=== PATIENT | male | born 1955 | race Caucasian/White ===

== ENCOUNTER → 2017-05-20 14:20 | Outpatient (CLI) | payer OTHER, BC, SELFPAY ==
--- NOTE | 2017-05-20 14:23 | MR_ITS ---
MR shoulder RT wo con HISTORY: Right shoulder pain with limited range of motion ITS.REASON: RIGHT SHOULDER PAIN nor injury April 21. Pain with difficulty extending arm from body ORDERING PHYSICIAN: Lupe Doe MD PATIENT AGE: 61 years COMPARISON: None TECHNIQUE:. Multiplanar multiecho sequences, without contrast. On 1.5 T MR FINDINGS: Abnormal biceps tendon. Longitudinal split tear the biceps tendon which begins on initial inferior images it continues upward through through level of bicipital groove.. Prominent enlarged biceps tendon results Fluid surrounding the biceps tendon sheath. The tendon does not appear to be fully transected but there is significant longitudinal split tear evident. . There is edema and increased signal throughout the anterior interval region, overlying the biceps tendon. The subscapularis tendon for the most part is intact although there with abnormal signal seen at superior aspect and near its insertion. Suspect mild partial tear of the of the superior margin subscapularis tendon as well... The biceps tendon follows a far anterior course as it passes above the bicipital groove. Although the biceps tendon not frankly anteriorly dislocated it is somewhat anterior in its course. Question leg could reflect partial disruption of restricting patricia of the subscapularis tendon.. Anterior inferior glenoid labrum appears diminished irregular signal & poorly defined, suspect for tear anterior labrum as well.. Posterior glenoid labrum intact. Osseous glenoid intact. Cartilage at the glenohumeral joint fairly well maintained. Moderate joint effusion with fluid extending to the subcoracoid recess anteriorly. Noted. Supraspinatus tendon:. Increased signal at its anterior margin of may reflect tendinopathy or possibly a partial tear.. No high-grade tear no full-thickness tear at this supraspinatus tendon. Narrowed subacromial space beneath the tip of acromion measuring 6 mm associated, reflecting mild/moderate subacromial stenosis Infraspinatus tendon appears intact. Small insertional erosions at the posterior humeral head just beneath the infraspinatus insertion noted reflecting minor degenerative changes. AC joint. Widening AC joint. Measures ~15 mm on axial MR image. Plain film correlation is suggested, ( right shoulder along with bilateral AC joint views with and without weights suggested). Slightly 1 cm widened AC joint appearance was also suggested on the previous August 2015 chest film.. Is there history of previous injury or surgery here? Any old studies available for comparison elsewhere.. There is some scant edema in at the right AC joint which I tend to favor reflects extension of joint fluid with small metallic MicroMark or artifact skin anterior to the right AC joint but I tend to favor this is old feature lIMPRESSION: Prominent longitudinal Split TEAR BICEPS TENDON most notable finding. Fluid surrounding biceps tendon. Abnormal Edema overlying this area throughout the anterior interval Subscapularis tendon with increased signal superiorly, suspect for partial tear its superior most margin. (This May contributing to the slight partial anterior position of biceps tendon) Anterior glenoid labral tear, or possibly degeneration. Anterior/ inferior labrum poorly defined Edema also extends into Abnormal Widening right AC joint... Suggests underlying AC joint separation. Age-indeterminate,, requires correlation(AC joint was generous width on a 2016 chest film but is slightly wider today MR.) Narrowed subacromial space. Supraspinatus Tendinopathy with possible partial tear along anterior margin supraspinatus tendon also noted
== END ==
PROVIDERS: Family Provider Family Medicine; PCP Family Medicine; Visit Provider Family Medicine
DX: M25.511 Pain in right shoulder (principal)
CPT/HCPCS: 73221

== ENCOUNTER → 2018-02-09 10:17 | Outpatient (CLI) | payer BC, SELFPAY ==
--- NOTE | 2018-02-09 10:23 | XR_ITS ---
EXAM: XR lumbar spine min 4V HISTORY: Low back pain ITS.REASON: SCIATICA ORDERING PHYSICIAN: Lupe Doe MD PATIENT AGE: 62 years COMPARISON: 08/25/2016 FINDINGS: Mild dextroscoliosis slightly worse than when compared to the previous exam measuring 19 degrees previously measuring 14 degrees. There is multilevel degenerative disc disease from T11 to L5. No acute fracture or dislocation is evident. There is mild chronic wedging at T12. No lytic or blastic change. IMPRESSION: Dextroscoliosis with degenerative disc disease at multiple levels. No acute fracture
== END ==
PROVIDERS: PCP Family Medicine; Visit Provider Family Medicine
DX: M54.30 Sciatica, unspecified side (principal)
CPT/HCPCS: 72110

== ENCOUNTER 2019-12-01 15:46 | Inpatient (IN) | payer BC, SELFPAY ==
[2019-12-01] VITALS (18 sets, daily range): BP systolic 113–171; BP diastolic 60–95; PULSE 70–90; RESP 16–18; TEMP 36.4–43; O2SAT 92–97; BMI 29.7; BMI 31.6
--- NOTE | 2019-12-01 15:42 | ECG_ITS ---
APPROVED REPORT Exam: Resting ECG HR:78 bpm ECG Measurements Heart Rate 78 AXES MS 236 P 37 QRSd 122 QRS 58 QT 386 T 41 QTc 440 <Conclusion> Sinus rhythm with 1st degree AV block Possible Left atrial enlargement RSR' or QR pattern in V1 suggests right ventricular conduction delay Borderline ECG Electronically signed by : Rashad Estrada, 12/06/2019 08:50:20
--- NOTE | 2019-12-01 15:51 | XR_ITS ---
PROCEDURE: XR CHEST 2V CLINICAL HISTORY: chest pain COMPARISON: CR CXR CHEST(2 VIEWS-NOT PORTABLE) from 08/20/2015 FINDINGS: The cardiomediastinal silhouette and pulmonary vascularity are within normal limits. The lungs are clear without infiltrates, suspicious nodules, or pleural effusions. Pneumoperitoneum is present. Degenerative changes are present in the thoracic spine. IMPRESSION: Pneumoperitoneum. The ER was aware of these findings and subsequently ordered a CT scan. Dictated by: Kristopher Sarkar MD 12/01/2019 16:52 Kristopher Sarkar MD in [place] 12/01/2019 16:52
[2019-12-01 16:04] LABS: Basophils % 0.3 % (0.1-2.0); Eosinophils # 0.3 K/mm3 (0.0-0.4); Eosinophils % 3.6 % (0.1-12.0); Hematocrit 44.7 % (42.0-52.0); Hemoglobin 16.4 g/dL (14.1-18.0); Lymphocytes # 1.1 K/mm3 (0.7-4.5); Lymphocytes % 12.4 % (10-50); Mean Corpuscular HGB Conc 36.6 g/dL (31.8-35.4); Mean Corpuscular Hemoglobin 31.1 pg (27.0-31.2); Mean Corpuscular Volume 84.8 fl (80-94); Mean Platelet Volume 7.2 fl (7.4-10.4); Monocytes # 0.6 K/mm3 (0.1-1.0); Monocytes % 7.2 % (1.7-9.3); Neutrophils # 6.7 K/mm3 (1.8-7.8); Neutrophils % 76.6 % (37.0-80.0); Platelet Count 301 K/mm3 (142-424); Red Blood Count 5.28 M/mm3 (4.60-6.20); Red Cell Distribution Width 13.8 % (11.5-17.5); White Blood Count 8.7 K/mm3 (4.8-10.8)
--- NOTE | 2019-12-01 16:08 | PC.NURSE ---
Pt to rad.
[2019-12-01 16:10] LABS: Anion Gap 8.8 mEq/L (5-15); Blood Urea Nitrogen 12 mg/dl (9-20); Calcium 9.4 mg/dl (8.4-10.2); Carbon Dioxide 29 mmol/L (22.0-30.0); Chloride 101 mmol/L (98-107); Creatinine Clearance Estimated 109 mL/min (50-200); Estimated Glomerular Filt Rate 75 ml/min (>60); GFR (African American) 91 ML/MIN (>60); Glucose 123 mg/dl (74-100); Potassium 3.8 mmoL/L (3.5-5.1); Sodium 135 mmol/L (136-145)
--- NOTE | 2019-12-01 16:12 | CT_ITS ---
PROCEDURE: CT ABDOMEN PELVIS W CON CLINICAL INDICATION: abd pain, diffuse Diffuse chest and abdominal and shoulder pain with abnormal chest x-ray. Pneumoperitoneum. COMPARISON: CR XR CHEST 2V from 12/01/2019 TECHNIQUE: IV Contrast: 75ML OPTIRAY 350 Oral Contrast None Axial images obtained with sagittal and coronal reformats. All CT scans at the facility use one or more dose reduction, viz: automated exposure control, ma/kV adjustment per patient size (including targeted exams where dose is matched to indication, i.e. head), or iterative reconstruction technique. FINDINGS: LOWER THORAX: There are atelectatic changes in the right lung base posteriorly with mild bronchiectasis and bronchial thickening with some mucoid impaction of posterior bronchi inferiorly. Coronary artery calcifications. There is a small hiatal hernia. ABDOMEN & PELVIS: Pneumoperitoneum is present. Small amount free air in the lesser sac. The stomach is somewhat distended with air-fluid level. There is a small hiatal hernia. The small bowel is mildly dilated throughout with scattered air-fluid levels. The distal most ileum is not distended. The appendix is prominent but there is no stranding of the periappendiceal fat. No abscess is evident. The appendix measures up to 11 mm in thickness with some minimal thickening of the wall proximally. There are few scattered small nodes in the mesenteries. There is no evidence of portal venous gas. The prior cholecystectomy. There is a 12 mm area of decreased attenuation within the right hepatic lobe anteriorly segment 6. The large bowel decompressed. There are few scattered colonic diverticula but no evidence of diverticulitis. The prostate is enlarged at 5.9 cm. No renal or ureteral calculi. The adrenal glands and pancreas and spleen have an unremarkable appearance. There are degenerative changes in the lumbar spine with scoliosis convex right. Sclerotic focus is present in the right femoral neck consistent with a bone island. There are mild osteoarthritic changes of the hips. A lucent lesion is present in the left ilium medially measuring 1 cm with sclerotic margin having a benign appearance. Possibly related to a cortical defect IMPRESSION: 1. Pneumoperitoneum consistent with ruptured viscus. The exact site of rupture is undetermined based on this exam. The stomach is somewhat distended with air-fluid levels. 2. Small bowel is also somewhat distended with air-fluid levels. A definite transition point is not identified however, the distal small bowel at the terminal ileum does not appear distended but there is smooth transition from the dilated portion to the nondilated portion of the terminal ileum. 3. The appendix is thickened measuring up to 11 mm with thickening of the wall. There is no air however around the thickened appendix. No abscess evident and no stranding of the periappendiceal fat. Cannot exclude the possibility of appendicitis. Clinical correlation required 4. Small hiatal hernia 5. 12 mm hypodense lesion of the liver nonspecific. Follow-up MRI or CT with hemangioma protocol may provide further evaluation on an outpatient basis. 6. Right lower lobe bronchiectasis with some mucoid impaction 7. Dr. Biggs was notified of the above findings by telephone 12/01/2019 at 4:30 p.m. Dictated by: Kristopher Sarkar MD 12/01/2019 16:48 Kristopher Sarkar MD in [place] 12/01/2019 16:48
--- NOTE | 2019-12-01 16:13 | PC.NURSE ---
pt tp ct
--- NOTE | 2019-12-01 16:17 | HMH.EDCP ---
ED Disposition Clinical Impression: Pneumoperitoneum Disposition: Admitted As Inpatient Condition on Discharge: Serious Referrals: Provider,Referral, [Referring] - - Critical Care Critical Care Time: No Attestation: On 12/01/19, the high probability of a clinically significant, sudden or life threatening deterioration of the following system(s) required my full and direct attention, intervention and personal management. The time I documented below is in addition to time spent performing reported procedures but includes the following listed in this critical care notation. Medical Decision Making - Medical Records Medical records reviewed: Yes: I reviewed the patient's medical records. - Jovon Inquiry Pt receiving controlled substance: No Vital Signs: 12/01/19 15:46 12/01/19 16:35 Temperature 98.0 F Temperature Source Oral Pulse Rate [Right Radial] 78 70 Respiratory Rate 18 Blood Pressure [Right Arm] 171/95 H 160/85 H Blood Pressure Mean [Right Arm] 120 110 Blood Pressure Source [Right Arm] Automatic Cuff Automatic Cuff Blood Pressure Position [Right Arm] Sitting Sitting 02 Sat by Pulse Oximetry 97 93 L Oxygen Delivery Method Room Air Room Air - Lab Data Lab Results 12/01/19 15:45: WBC 8.7, RBC 5.28, Hgb 16.4, Hct 44.7, MCV 84.8, MCH 31.1, MCHC 36.6 H, RDW 13.8, Plt Count 301, MPV 7.2 L, Neut % (Auto) 76.6, Lymph % (Auto) 12.4, [place] % (Auto) 7.2, Eos % (Auto) 3.6, Baso % (Auto) 0.3, Neut # (Auto) 6.7, Lymph # (Auto) 1.1, [place] # (Auto) 0.6, Eos # (Auto) 0.3, Baso # (Auto) 0.0 12/01/19 15:45: Sodium 135 L, Potassium 3.8, Chloride 101, Carbon Dioxide 29, Anion Gap 8.8, BUN 12, Creatinine 1.00, Estimated Creat Clear 109, Estimated GFR 75, Est GFR ( Amer) 91, Glucose 123 H, Calcium 9.4, Troponin I < 0.01 12/01/19 15:45: Total Bilirubin 0.7, Direct Bilirubin 0.0, Conjugated Bilirubin 0.0, Indirect Bilirubin 0.7, Unconjugated Bilirubin 0.7, AST 29, ALT 22, Alkaline Phosphatase 54, Total Protein 6.9, Albumin 4.1, Amylase 73, Lipase 123 Result diagrams: 12/01/19 15:45 12/01/19 15:45 Orders (Tests/Meds): ED MEDICATIONS Discontinued Medications Generic Name Dose Route Start Last Admin Trade Name Rene PRN Reason Stop Dose Admin Aspirin 324 mg 12/01/19 15:52 12/01/19 15:55 Aspirin 81mg Chewable Tablet PO 12/01/19 15:53 324 mg ONCE ONE Administration Ioversol 75 ml 12/01/19 16:22 12/01/19 16:23 Rad-Optiray 350 100ml Vial IV 12/01/19 16:23 75 ml ONCE ONE Administration Protocol Morphine Sulfate 4 mg 12/01/19 17:01 Morphine 4mg/Ml Syringe IV 12/01/19 17:02 ONCE ONE Ondansetron HCl 4 mg 12/01/19 17:01 Zofran 4mg/2ml Vial IV 12/01/19 17:02 ONCE ONE Sodium Chloride 10 ml 12/01/19 16:22 12/01/19 16:23 Rad-Saline Flush 10ml Syringe IV 12/01/19 16:23 10 ml ONCE ONE Administration ORDERS Category Date Time Status Troponin I Q3H Lab 12/01/19 19:00 Ordered Troponin I Q3H Lab 12/01/19 22:00 Ordered - Radiology Data #1 Image(s): Chest Image Reviewed: Yes I reviewed the patient's radiology results, Yes I have reviewed radiologist's interpretation IMPRESSION: Pneumoperitoneum. The ER was aware of these findings and subsequently ordered a CT scan. - CT Data CT Scan: Abdomen, Pelvis Time Received: 17:04 Findings Narrative: IMPRESSION: 1. Pneumoperitoneum consistent with ruptured viscus. The exact site of rupture is undetermined based on this exam. The stomach is somewhat distended with air-fluid levels. 2. Small bowel is also somewhat distended with air-fluid levels. A definite transition point is not identified however, the distal small bowel at the terminal ileum does not appear distended but there is smooth transition from the dilated portion to the nondilated portion of the terminal ileum. 3. The appendix is thickened measuring up to 11 mm with thickening of the wall. There is no air ho
--- NOTE | 2019-12-01 16:18 | PC.NURSE ---
v/s delayed due to rad.
[2019-12-01 16:24] LABS: Troponin I < 0.01 ng/ml (0.00-0.034)
[2019-12-01 16:33] LABS: Alanine Aminotransferase 22 U/L (12-78); Alkaline Phosphatase 54 U/L (38-126); Amylase 73 U/L (30-110); Aspartate Amino Transferase 29 U/L (17-59); Bilirubin,Indirect 0.7 mg/dL (0.0-0.9); Bilirubin,Total 0.7 mg/dl (0.2-1.3); Bilirubin,Unconjugated 0.7 mg/dL (0.0-1.1); Lipase 123 U/L (23-300)
[2019-12-01 16:34] LABS: Albumin Level 4.1 g/dl (3.5-5.0); Total Protein,Serum 6.9 g/dl (6.3-8.2)
--- NOTE | 2019-12-01 16:34 | PC.NURSE ---
Radiologist speaking with Dr bauman at this time.
--- NOTE | 2019-12-01 16:55 | PC.NURSE ---
Dr Cipriano grider.
--- NOTE | 2019-12-01 17:00 | PC.NURSE ---
KASSANDRA VASQUEZ spoke with Dr. Cota at this time Dr. Cota states to KASSANDRA VASQUEZ that he will admit pt, he is going to call in the surgery team and take pt to the OR
--- NOTE | 2019-12-01 17:23 | PC.NURSE ---
notified traffic warehouse supervisor of dr. velasco stating he is going to take pt to the OR and that he is going to admit pt.
--- NOTE | 2019-12-01 17:28 | PC.NURSE ---
OR team paged at this time
--- NOTE | 2019-12-01 17:31 | PC.NURSE ---
Spoke to Wale, chronometer tester for Anesthesia at this time.
--- NOTE | 2019-12-01 17:33 | PC.NURSE ---
Spoke to BOLA Amaro at this time
--- NOTE | 2019-12-01 17:34 | PC.NURSE ---
Spoke to Von, Nursery Helper at this time.
--- NOTE | 2019-12-01 17:35 | PC.NURSE ---
Dr Cota at bedside
--- NOTE | 2019-12-01 17:35 | PC.NURSE ---
dr. velasco at BS
--- NOTE | 2019-12-01 18:01 | HMH.GSHP ---
HPI HPI: This is a 64-year-old gentleman who presents emergency department with increasing abdominal pain. CT scan was completed that revealed pneumoperitoneum. The surgical service was consulted for further evaluation and management. Please see HPI from his emergency department evaluation forwarded below. From emergency department evaluation: HPI narrative: 64-year-old male presented to the emergency department with a variety of symptoms. He states that approximately 2 hours ago he had the urge to go have a bowel movement. He states that during this episode, he started having some discomfort in the middle of his abdomen. He states that it radiated all the way up into his chest. He states that the pain is persisted and moved into his neck, back left shoulder and arm. States that it is a dull nagging pain. He is not having any associated vomiting, diarrhea or blood in stool. Patient states that the pain continues to persist at this time. He is not having any shortness of breath or cough or hemoptysis. Denies any headache or change in vision. No focal weakness. Denies any fevers or chills. [facility] History Medical History: Reports:: Hypertension *Have you ever received a pneumonia vaccine?: No *Have you received a flu vaccine this season?: No Other Medical History: Reports: Hypothyroidism, Sinus Problems Other Surgeries: Yes: Other (Laparoscopic Sang fundoplication) - *Social History Smoking Status: Never smoker Alcohol Intake: never *Occupational Status:: other *Travel in the last 8 weeks: None Family Hx:: Hypertension Review of Systems - Constitutional Denies chills - Eyes Denies change in vision - ENT Denies difficulty swallowing - *Cardiovascular Denies chest pain - *Respiratory Denies cough - *Gastrointestinal Reports abdominal pain - *Genitourinary Denies difficulty urinating - *Musculoskeletal Denies muscle weakness - Integumentary/Breasts Denies new lesions - *Neurologic Denies headache(s) - Psychiatric Denies anxiety - Endocrine Denies cold intolerance - Hematologic/Lymphatic Denies easy bleeding - Allergic/Immunologic Denies wheezing Meds Home Medications Medication Instructions Recorded Confirmed Type fluticasone furoate 200 1 ea INHALATION DAILY 11/09/19 12/01/19 History mcg-vilanterol 25 mcg/dose inhalation powder indomethacin 50 mg capsule 50 mg PO DAILY 11/09/19 12/01/19 History levothyroxine 137 mcg tablet 137 mcg PO DAILY tab 11/09/19 12/01/19 History lisinopril 10 1 tab PO DAILY tab 11/09/19 12/01/19 History mg-hydrochlorothiazide 12.5 mg tablet Fluticasone/Vilanterol [Breo 1 inh IH DAILY 12/01/19 12/01/19 History Ellipta 200-25 Mcg INH] Omeprazole [Omeprazole 20mg 20 mg PO DAILY 12/01/19 12/01/19 History Capsule] Allergies Allergy/AdvReac Type Severity Reaction Status Date / Time clarithromycin Allergy Verified 12/01/19 17:10 Macrolide Antibiotics Allergy Verified 12/01/19 17:12 Sulfa (Sulfonamide Allergy Verified 12/01/19 17:12 Antibiotics) Exam Vital signs and Labs for Last 24 Hours: Temp Pulse Resp BP Pulse Ox 98.8 F 70 18 160/85 H 93 L 12/01/19 15:46 12/01/19 16:35 12/01/19 15:46 12/01/19 16:35 12/01/19 16:35 Laboratory Results - last 24 hr 12/01/19 15:45: WBC 8.7, RBC 5.28, Hgb 16.4, Hct 44.7, MCV 84.8, MCH 31.1, MCHC 36.6 H, RDW 13.8, Plt Count 301, MPV 7.2 L, Neut % (Auto) 76.6, Lymph % (Auto) 12.4, [place] % (Auto) 7.2, Eos % (Auto) 3.6, Baso % (Auto) 0.3, Neut # (Auto) 6.7, Lymph # (Auto) 1.1, [place] # (Auto) 0.6, Eos # (Auto) 0.3, Baso # (Auto) 0.0 12/01/19 15:45: Sodium 135 L, Potassium 3.8, Chloride 101, Carbon Dioxide 29, Anion Gap 8.8, BUN 12, Creatinine 1.00, Estimated Creat Clear 109, Estimated GFR 75, Est GFR ( Amer) 91, Glucose 123 H, Calcium 9.4, Troponin I < 0.01 12/01/19 15:45: Total Bilirubin 0.7, Direct Bilirubin 0.0, Conjugated Bilirubin 0.0, Indirect Silver
[2019-12-01 18:02] LABS: Coronavirus 19 IgG Antibody Positive (Negative); Coronavirus 19 IgM Antibody Negative (Negative)
--- NOTE | 2019-12-01 18:05 | P.PN_ITS ---
[facility] Anesthesia Checklist - Patient Identification Patient Identification: Arm Band, Verbal (Name & ) - Structural Data Admitted From: Emergency Dept Planned Operative Procedure/s: Exploratory laparotomy Consent for Planned Operative Procedure(s) Verified: Yes Verified Documents: Surgical Consent, History and Physical - NPO Status Verified Time NPO: 13:30 - Chart Verification Results Verified: CBC, BMP, ECG - Additional verifications Anesthesia Reactions: No - Airway Assessment C-Spine Mobility Assessed: Yes (MP 2, facial hair, thick neck) TMJ Mobility Assessed: Yes Dentition: Good Dentition - Neurological Assessment Level of Consciousness: Awake, Alert, Appropriate, Follows Commands Hx Seizures: No Numbness or tingling in extremities: No - Anesthesia Plan Anesthesia Risk discussed: Yes Anesthesia Plan: Verified ASA Class: III (Emergent) Anesthesia Type: General - Preoperative Comments Pre-Operative Comments: Pt described episode post surgery of being awake but unable to speak until medication administered. Impressed to think pt had residual paralysis a possible complication of an anesthetic, which was circumstantial. Education provided, plan discussed, verified and approved. [facility] History I have reviewed the patient's past medical history: Yes Medical History: Reports:: Asthma, Gastroesophageal Reflux Disease(GERD), Hypertension *Have you ever received a pneumonia vaccine?: No *Have you received a flu vaccine this season?: No Other Medical History: Reports: Hypothyroidism, Sinus Problems Comment:: Obesity Anesthesia experience/problems:: Prior complications discussed above. Laterality Cases: Left: Arthroscopy Knee, Right: Arthroscopy Shoulder Other Surgeries: Yes: Cholecystectomy, Hernia Repair (Bilateral inguinal hernia, ), Other (Laparoscopic Sang fundoplication, Right knee open debridement) Fractures: Yes (Right clavicle) - *Social History Smoking Status: Never smoker Alcohol Intake: never Substance Use Type: denies use *Occupational Status:: other *Travel in the last 8 weeks: None Family Hx:: Hypertension
--- NOTE | 2019-12-01 18:10 | PC.NURSE ---
Wale at bedside at this time.
--- NOTE | 2019-12-01 18:26 | PC.NURSE ---
Surgery nurse Simi Mackay at bedside
--- NOTE | 2019-12-01 20:16 | HMH.OPNOTE ---
Date of procedure: 12/01/19 Pre-op Diagnosis:: Pneumoperitoneum Abnormally thickened appendix Post-op Diagnosis:: Same Procedure performed:: Exploratory laparotomy Appendectomy Surgeon:: Ruddy Cota MD LETTER STAMPING MACHINE OPERATOR:: Wale Bellamy Anesthesia: GETA Estimated blood loss (mL): 25 Operative findings:: Pneumoperitoneum confirmed No free fluid or succus No obvious perforation of stomach or duodenum No inflammatory changes around stomach or duodenum No obvious inflammatory change or perforation of small bowel Moderate dilatation of distal small bowel Thickened appendix with no obvious acute inflammatory changes Partial malrotation of small bowel Displacement of transverse colon into pelvis secondary to partial malrotation Operative note:: After informed consent was obtained the patient was taken to the operating room and placed in the supine position. General anesthesia was induced and his abdomen was prepped and draped in a sterile fashion. An upper midline laparotomy incision was completed. The deep subcutaneous tissue was dissected with scalpel and electrocautery. The abdominal cavity was entered in the epigastric region. Obvious pneumoperitoneum was released. Evaluation revealed no succus or free fluid. The Bookwalter retractor was placed in position. Careful retraction and evaluation of the left upper quadrant revealed no free fluid or inflammatory changes of the anterior stomach. No obvious perforation was noted. Attention was then taken more medially with careful retraction/elevation of the tissue. A Sharonda maneuver was completed. No inflammatory changes or obvious perforation of the small bowel was noted. As retraction along the right lateral wall was taken in a midline direction the right colon was found to be partially displaced in a cephalad direction and also partially malrotated medially. The transverse colon projected toward the pelvis. Elevation did reveal thickening of the appendix. No obvious acute inflammatory changes were noted; however, the decision was made to complete an appendectomy secondary to fairly severe thickening and concerns for possible neoplastic change. A window was made in the mesoappendix. A BAHMAN stapler was used to transect the appendix at its base. The mesentery was taken down in a clamp/cut/tie method utilizing Vicryl stick tie ligation. No obvious bleeding was noted. The appendix was passed off for pathologic evaluation. Further evaluation of the small bowel and running of the entire small bowel did reveal partial malrotation with projection of the distal small bowel/terminal ileum to be rotated in a cephalad direction. This partial male rotation did not appear to create obstruction or ischemia. The distal small bowel was somewhat dilated. The colon had no signs of obvious dilatation as the transverse colon (as stated earlier this was projected towards the pelvis) was decompressed and no obvious sign of perforation or inflammation noted. The risks of more extensive intervention were deemed to outweigh the benefits. Fascia was reapproximated with #2 Novafil. Skin was stapled and dressings were applied. The patient was transferred to recovery in stable condition after extubation. Condition: stable Disposition: PACU Specimens:: Appendix Complications:: No immediate
--- NOTE | 2019-12-01 20:38 | P.PN_ITS ---
[facility] Anesthesia Record Part I Intake, IV Amount: 1,500 Estimated blood loss (mL): 25 Urine output (mL): 550 Blood Products used (#): none Blood Pressure: 135/64 SaO2: 94 Pulse Rate: 77 Respiratory Rate: 16 Temperature: 98.0 F Patient is:: Drowsy, Nasal O2, Stable Stable to PACU at:: 20:30
--- NOTE | 2019-12-01 21:07 | PC.NURSE ---
patient up to floor from surgery.
[2019-12-02] VITALS (18 sets, daily range): BP systolic 113–148; BP diastolic 57–75; PULSE 60–81; RESP 15–20; TEMP 36.6–37.3; O2SAT 91–96; BMI 31.4
--- NOTE | 2019-12-02 04:56 | PC.NURSE ---
Pt has slept at intervals. Has c/o small amount of pain to abdomen and back with rating of 2-3. Morphine BEHAVIORAL GENETICIST pump in use. Pt has had 3 mg thus far. LR infusing at 150 ml/hr. NG tube @ (L) nare to low wall suction. Brown drainge noted. F/C draining to bedside with clear yellow urine. Midline incision with DSG intact. Scant drainage upon arrival to floor. Pt later turned to left side and increased sanguineous drainage noted. No additional drainage noted to DSG since. VSS. Will continue to monitor.
[2019-12-02 07:10] LABS: Basophils % 0.1 % (0.1-2.0); Hematocrit 42.1 % (42.0-52.0); Lymphocytes # 0.5 K/mm3 (0.7-4.5); Lymphocytes % 3.1 % (10-50); Mean Corpuscular HGB Conc 35.7 g/dL (31.8-35.4); Mean Corpuscular Hemoglobin 31.1 pg (27.0-31.2); Mean Corpuscular Volume 87.1 fl (80-94); Mean Platelet Volume 7.3 fl (7.4-10.4); Monocytes # 0.9 K/mm3 (0.1-1.0); Monocytes % 6.3 % (1.7-9.3); Neutrophils # 13.4 K/mm3 (1.8-7.8); Neutrophils % 90.5 % (37.0-80.0); Platelet Count 267 K/mm3 (142-424); Red Blood Count 4.84 M/mm3 (4.60-6.20); White Blood Count 14.8 K/mm3 (4.8-10.8)
[2019-12-02 07:14] LABS: MANUAL DIFFERENTIAL MANUAL DIFFERENTIAL (MANUAL DIFF)
[2019-12-02 08:29] LABS: Chloride 101 mmol/L (98-107); Potassium 4.3 mmoL/L (3.5-5.1); Sodium 136 mmol/L (136-145)
[2019-12-02 08:32] LABS: Anion Gap 12.3 mEq/L (5-15); Blood Urea Nitrogen 13 mg/dl (9-20); Calcium 8.9 mg/dl (8.4-10.2); Carbon Dioxide 27 mmol/L (22.0-30.0); Creatinine Clearance Estimated 113 mL/min (50-200); Estimated Glomerular Filt Rate 85 ml/min (>60); GFR (African American) 103 ML/MIN (>60); Glucose 163 mg/dl (74-100)
--- NOTE | 2019-12-02 09:08 | HMH.GSPN ---
Subjective Patient reports: no flatus, no bowel movement (He states that he is sore this morning .) Progress Note: A&P (1) Pneumoperitoneum Status: Acute Assessment and plan: No obvious perforation noted on laparotomy. Overall, doing fairly well status post exploratory laparotomy with appendectomy. DC Mirza Ambulate Continue NG for now Continue Zosyn for now The patient did have some abnormal rotation and displacement of his small bowel and colon noted intraoperatively. Close ongoing evaluation for possible obstruction/ischemia is necessary. Current Visit: Yes (2) Postoperative ileus Status: Acute Assessment and plan: Await return of bowel function Current Visit: Yes (3) Appendix disease Status: Acute Assessment and plan: Abnormally thickened appendix with no sign of acute appendicitis. Await pathology Current Visit: Yes Exam Vital signs and Labs for Last 24 Hours: Temp Pulse Resp BP Pulse Ox 98.8 F 67 18 128/66 92 L 12/02/19 08:00 12/02/19 08:00 12/02/19 08:00 12/02/19 08:00 12/02/19 08:00 Laboratory Results - last 24 hr 12/01/19 15:45: WBC 8.7, RBC 5.28, Hgb 16.4, Hct 44.7, MCV 84.8, MCH 31.1, MCHC 36.6 H, RDW 13.8, Plt Count 301, MPV 7.2 L, Neut % (Auto) 76.6, Lymph % (Auto) 12.4, Leon % (Auto) 7.2, Eos % (Auto) 3.6, Baso % (Auto) 0.3, Neut # (Auto) 6.7, Lymph # (Auto) 1.1, Leon # (Auto) 0.6, Eos # (Auto) 0.3, Baso # (Auto) 0.0 12/01/19 15:45: Sodium 135 L, Potassium 3.8, Chloride 101, Carbon Dioxide 29, Anion Gap 8.8, BUN 12, Creatinine 1.00, Estimated Creat Clear 109, Estimated GFR 75, Est GFR ( Amer) 91, Glucose 123 H, Calcium 9.4, Troponin I < 0.01 12/01/19 15:45: Total Bilirubin 0.7, Direct Bilirubin 0.0, Conjugated Bilirubin 0.0, Indirect Bilirubin 0.7, Unconjugated Bilirubin 0.7, AST 29, ALT 22, Alkaline Phosphatase 54, Total Protein 6.9, Albumin 4.1, Amylase 73, Lipase 123 12/01/19 15:45: SARS-CoV-2 IgG Ab (Rapid) Positive A, SARS-CoV-2 IgM Ab (Rapid) Negative 12/02/19 06:29: WBC 14.8 H D, RBC 4.84, Hgb 15.0, Hct 42.1, MCV 87.1, MCH 31.1, MCHC 35.7 H, RDW 14.0, Plt Count 267, MPV 7.3 L, Neut % (Auto) 90.5 H, Lymph % (Auto) 3.1 L, Leon % (Auto) 6.3, Eos % (Auto) 0.0 L, Baso % (Auto) 0.1, Neut # (Auto) 13.4 H, Lymph # (Auto) 0.5 L, Leon # (Auto) 0.9, Eos # (Auto) 0.0, Baso # (Auto) 0.0 12/02/19 06:29: Sodium 136, Potassium 4.3, Chloride 101, Carbon Dioxide 27, Anion Gap 12.3, BUN 13, Creatinine 0.90, Estimated Creat Clear 113, Estimated GFR 85, Est GFR ( Amer) 103, Glucose 163 H D, Calcium 8.9 I & O for Last 24 hours: Intake & Output 11/29/19 11/30/19 12/01/19 12/02/19 11:59 11:59 11:59 11:59 Intake Total 1500 / 1500 Output Total 650 / 650 Balance 850 / 850 Weight 232 lb - Constitutional no acute distress - *Routine Respiratory Exam Absent: respiratory distress - *Routine Cardiovascular Exam Present: RRR - *Routine Abdominal Exam Present: soft Comments: Dressing intact. Some sanguinous drainage noted.
[2019-12-02 09:42] LABS: Lactic Acid 1.4 mmol/L (0.7-2.1)
[2019-12-02 11:14] LABS: Lymphocytes % 7 % (10-50); Monocytes % 4 % (2-9); Neutrophils % 77 % (42-76); RBC Morphology Normal; Total Cells Counted 100
[2019-12-02 11:15] LABS: Platelet Estimate Normal
--- NOTE | 2019-12-02 13:18 | HMH.ANESII ---
[facility] Anesthesia Record Part II Discharge Time: 21:00 Destination: Medical Surgical Department PACU nurse assessment reviewed?: Yes Patient Condition:: Good Anesthesia Complications:: None Swallowing reflex intact?: Yes Cyanosis?: No Blood Pressure: 133/73 Pulse Rate: 76 Temperature: 98.0 F Mental Status: Alert & Oriented Pain level:: 0 Nausea and/or vomitting:: None Intake, IV Amount: 0 (Normovolemic)
--- NOTE | 2019-12-02 15:09 | P.CONPHA_ITS ---
[facility] Pharmacy VTE Monitoring - Patient Demographics Admission date: 12/01/19 Report Date: 12/02/19 Time: 15:09 Allergies/Adverse Reactions: Patient Allergies clarithromycin Allergy (Verified 12/01/19 17:10) Macrolide Antibiotics Allergy (Verified 12/01/19 17:12) Sulfa (Sulfonamide Antibiotics) Allergy (Verified 12/01/19 17:12) Height: 1.83 m Weight: 105.233 kg Patient Problems: Current Active Problems Pneumoperitoneum (Acute) Postoperative ileus (Acute) Appendix disease (Acute) - VTE Risk Labs: VTE Related Lab Results Hgb 15.0 g/dL (14.1-18.0) 12/02/19 06:29 Hct 42.1 % (42.0-52.0) 12/02/19 06:29 Plt Count 267 K/mm3 (142-424) 12/02/19 06:29 BUN 13 mg/dl (9-20) 12/02/19 06:29 Creatinine 0.90 mg/dl (0.66-1.25) 12/02/19 06:29 Estimated Creat Clear 113 mL/min (50-200) 12/02/19 06:29 Was VTE Risk Assessment Performed: Yes VTE Score: 4 VTE Risk Level: Low Risk - Prophylaxis VTE Prophylaxis Ordered?: Yes Types of VTE Prophylaxis: TEDS Knee High, IPCS Thigh High Location of Applied Device: Bilateral Lower Extremeties
--- NOTE | 2019-12-02 15:10 | HMH.PHAINT ---
MEDICATION RECONCILIATION COMPLETED ON PATIENT USING EXTERNAL FILL HISTORY FROM PHARMACY. -MICHAELLE BERNAL, NADINED
--- NOTE | 2019-12-02 17:47 | PC.NURSE ---
PT IS RESTING IN BED. PT HAS BEEN UP IN THE CHAIR SINCE THIS MORNING. PT HAS BEEN UP TO AMBULATE X2 THIS SHIFT. PT AMBULATED ONCE IN THE ROOM AND ONCE IN THE HALLWAY. PT STATES HE HAS BELCHED A FEW TIMES THIS SHIFT. PT HAS A NEW DRESSING TO MIDLINE INCISION. INCISION WAS CLEANED WITH ALCOHOL AND DRESSED WITH STERILE 4X4'S AND TEGADERM. PT HAS VOIDED SINCE CATHETER WAS DC'D THIS MORNING. NG TUBE SECURED @ LEFT NARE CONNECTED TO LOW CONTINUOUS SUCTION. 500 ML'S EMPTIED FROM NG CANISTER. LUNG SOUNDS CLEAR. VERY HYPOACTIVE BOWEL SOUNDS. SKUDS NOTED TO BLE. PT HAS BEEN USING INCENTIVE SPIROMETER. O2 SATURATION 91-95% ON ROOM AIR. NSR ON TELEMETRY. VSS. WHEN PT IS ASKED TO RATE HIS PAIN HE STATES I WOULD NOT CALL WHAT I HAVE PAIN, I'M JUST REALLY SORE . PT STATED BEFORE HE GOT OOB THIS MORNING HIS BACK WAS BOTHERING HIM BUT AFTER HE GOT UP AND MOVED AROUND IT WAS BETTER. WILL CONTINUE TO MONITOR.
--- NOTE | 2019-12-02 22:12 | PC.NURSE ---
Pt is currently resting in bed at this time. Ambulated in hallway and tolerated fair with assistance. Pt denies any discomfort at this time. NG tube patent, to low wall suction with brown drainage noted. Pt has urinated. Pt remains on morphine PORTABLE FEED MILL OPERATOR pump. No morphine administered since shift change. VSS. Medications administered per may. Will continue to monitor.
[2019-12-03] VITALS (14 sets, daily range): BP systolic 138–160; BP diastolic 71–84; PULSE 69–84; RESP 16–20; TEMP 36.6–37.4; O2SAT 90–95; BMI 30.5
--- NOTE | 2019-12-03 03:37 | PC.NURSE ---
Pt has slept at intervals this shift. Ambulated in hallway x1. Pt states he has burped some. BS hypoactive. NG tube @ (L) nare to low wall suction. 700 ml output thus far of brown drainage. DSG to abdomen, midline, C/D/I. COACH OPERATOR pump with Morphine. 6 mg administered thus far. Pt c/o discomfort has been more his back this shift then from incision or abdomen. Pt has been encouraged to use incentive spirometer. He has been coughing frequently. Pt placed on 1.5 L NC at intervals this shift while sleeping.Desats as low as 86%, but recovers quickly. He does not require O2 while awake. Other VSS. Will continue to monitor.
[2019-12-03 06:03] LABS: Basophils % 0.2 % (0.1-2.0); Eosinophils # 0.1 K/mm3 (0.0-0.4); Eosinophils % 1.3 % (0.1-12.0); Hemoglobin 13.5 g/dL (14.1-18.0); Lymphocytes % 8.8 % (10-50); Mean Corpuscular HGB Conc 35.6 g/dL (31.8-35.4); Mean Corpuscular Hemoglobin 31.1 pg (27.0-31.2); Mean Corpuscular Volume 87.5 fl (80-94); Mean Platelet Volume 7.2 fl (7.4-10.4); Monocytes # 0.8 K/mm3 (0.1-1.0); Monocytes % 7.4 % (1.7-9.3); Neutrophils # 8.9 K/mm3 (1.8-7.8); Neutrophils % 82.3 % (37.0-80.0); Platelet Count 259 K/mm3 (142-424); Red Blood Count 4.34 M/mm3 (4.60-6.20); Red Cell Distribution Width 14.1 % (11.5-17.5); White Blood Count 10.8 K/mm3 (4.8-10.8)
[2019-12-03 06:11] LABS: Chloride 104 mmol/L (98-107); Potassium 3.9 mmoL/L (3.5-5.1); Sodium 137 mmol/L (136-145)
[2019-12-03 06:14] LABS: Anion Gap 7.9 mEq/L (5-15); Blood Urea Nitrogen 12 mg/dl (9-20); Calcium 8.9 mg/dl (8.4-10.2); Carbon Dioxide 29 mmol/L (22.0-30.0); Creatinine Clearance Estimated 109 mL/min (50-200); Estimated Glomerular Filt Rate 85 ml/min (>60); GFR (African American) 103 ML/MIN (>60)
[2019-12-03 06:20] LABS: Lactic Acid 0.6 mmol/L (0.7-2.1)
[2019-12-03 06:22] LABS: Glucose 113 mg/dl (74-100)
--- NOTE | 2019-12-03 09:12 | HMH.GSPN ---
Subjective Patient reports: no new complaints, no flatus, no bowel movement Progress Note: A&P (1) Pneumoperitoneum Status: Acute Assessment and plan: Spontaneous idiopathic pneumoperitoneum with negative laparotomy. Gastrografin UGI series ordered for tomorrow Current Visit: Yes (2) Postoperative ileus Status: Acute Assessment and plan: Await return of bowel function Current Visit: Yes (3) Appendix disease Status: Acute Assessment and plan: Await pathology Current Visit: Yes Exam Vital signs and Labs for Last 24 Hours: Temp Pulse Resp BP Pulse Ox 98.9 F 69 19 148/77 H 93 L 12/03/19 08:00 12/03/19 08:00 12/03/19 08:00 12/03/19 08:00 12/03/19 08:00 Laboratory Results - last 24 hr 12/02/19 06:29: Total Counted 100, Neutrophils % (Manual) 77 H, Band Neutrophils % 12.0 H, Lymphocytes % (Manual) 7 L, Monocytes % (Manual) 4, Platelet Estimate Normal, RBC Morphology Normal 12/02/19 09:20: Lactate 1.4 12/03/19 05:35: Lactate 0.6 L 12/03/19 05:35: WBC 10.8 D, RBC 4.34 L, Hgb 13.5 L, Hct 38.0 L, MCV 87.5, MCH 31.1, MCHC 35.6 H, RDW 14.1, Plt Count 259, MPV 7.2 L, Neut % (Auto) 82.3 H, Lymph % (Auto) 8.8 L, [place] % (Auto) 7.4, Eos % (Auto) 1.3, Baso % (Auto) 0.2, Neut # (Auto) 8.9 H, Lymph # (Auto) 1.0, [place] # (Auto) 0.8, Eos # (Auto) 0.1, Baso # (Auto) 0.0 12/03/19 05:35: Sodium 137, Potassium 3.9, Chloride 104, Carbon Dioxide 29, Anion Gap 7.9, BUN 12, Creatinine 0.90, Estimated Creat Clear 109, Estimated GFR 85, Est GFR ( Amer) 103, Glucose 113 H D, Calcium 8.9 I & O for Last 24 hours: Intake & Output 11/30/19 12/01/19 12/02/1920/20 11:59 11:59 11:59 11:59 Intake Total 1500 / 1500 4784 / 4784 Output Total 1700 / 1700 2995 / 2995 Balance -200 / -200 1789 / 1789 Weight 232 lb 225 lb 9 oz - Constitutional no acute distress - *Routine Respiratory Exam Absent: respiratory distress - *Routine Cardiovascular Exam Present: RRR - *Routine Abdominal Exam Present: soft Comments: Dressing intact. No spreading cellulitis.
--- NOTE | 2019-12-03 13:27 | PC.NURSE ---
Pt ambulated to room 216 and back to his room with 1 person assist. Pt tolerated well.
--- NOTE | 2019-12-03 15:31 | PC.NURSE ---
A&OX4. PT HAS TOLERATED ROOM AIR WELL THROUGHOUT SHIFT. pt WORE O2 AT NIGHT WHILE SLEEPING BUT IT WAS TAKEN OFF WHEN HE WOKE UP. RESPIRATIONS REGULAR AND UNLABORED. EXPIRATORY RHONCHI NOTED IN BILATERAL UPPER LOBES. DIMINISHED IN LOWER LOBES. OCCASIONAL NONPRODUCTIVE COUGH NOTED. HAND MANAGER MECHANICAL EQUAL. +2 PULSES NOTED. SCUDS IN USE. NG TUBE NOTED TO L NARE. NOTED AT 60. HOOKED UP TO LOW WALL SUCTION. BROWNISH YELLOW CONTENTS NOTED IN SUCTION CANNISTER. HYPOACTIVE BOWEL SOUNDS HEARD IN ALL 4 QUADRANTS. SOFT AND TENDER ABDOMEN. NO BM THUS FAR. PT AMBULATES TO THE RESTROM W 1 PERSON ASSIST. STEADY GAIT NOTED. URINE NOTED CLEAR AND YELLOW. MIDLINE ABDOMINAL INCISION NOTED. DRESSING CDI. LR INFUSING AT 150ML/HR. NO EDEMA NOTED. HOUSING GRANT ANALYST PUMP IN USE. 1MG EVERY 10 MINUTES NEEDED. INCENTIVE SPIROMETER ENCOURAGED 10 TIMES EVERY HOUR WHILE AWAKE. PT ENCOURAGED TO WALK MUCH POSSIBLE. HE HAS BEEN IN THE CHAIR MOST OF THE DAY. PAIN REPORTED IN BACK RATING 5/10. STATES HIS ABDOMEN IS SORE BUT NOT VERY PAINFUL. PT IS CURRENTLY LYING IN BED RESTING. CALL LIGHT WITHIN REACH. BED IN LOWEST POSITION. VSS. WILL CONTINUE TO MONITOR.
--- NOTE | 2019-12-03 16:15 | PC.NURSE ---
Pt ambulated to room 215 and back with 1 person assist. Pt tolerated well.
--- NOTE | 2019-12-03 18:39 | PC.NURSE ---
Pt ambulated to room 215 and back w 1 person assist. Pt tolerated well.
--- NOTE | 2019-12-03 18:40 | PC.NURSE ---
Pain pump cleared selvin Alvarez RN. 1 mg cleared from pump.
[2019-12-04] VITALS (8 sets, daily range): BP systolic 142–166; BP diastolic 66–84; PULSE 70–81; RESP 19–20; TEMP 36.7–37.2; O2SAT 90–96; BMI 29.4
[2019-12-04 05:09] LABS: Basophils % 0.3 % (0.1-2.0); Eosinophils # 0.4 K/mm3 (0.0-0.4); Eosinophils % 3.1 % (0.1-12.0); Hematocrit 41.2 % (42.0-52.0); Hemoglobin 14.5 g/dL (14.1-18.0); Lymphocytes # 0.9 K/mm3 (0.7-4.5); Lymphocytes % 8.4 % (10-50); Mean Corpuscular HGB Conc 35.2 g/dL (31.8-35.4); Mean Corpuscular Hemoglobin 30.9 pg (27.0-31.2); Mean Corpuscular Volume 87.7 fl (80-94); Mean Platelet Volume 7.1 fl (7.4-10.4); Monocytes # 0.9 K/mm3 (0.1-1.0); Neutrophils # 8.9 K/mm3 (1.8-7.8); Neutrophils % 80.1 % (37.0-80.0); Platelet Count 295 K/mm3 (142-424); Red Blood Count 4.69 M/mm3 (4.60-6.20); White Blood Count 11.1 K/mm3 (4.8-10.8)
[2019-12-04 05:17] LABS: Anion Gap 8.7 mEq/L (5-15); Blood Urea Nitrogen 11 mg/dl (9-20); Calcium 9.3 mg/dl (8.4-10.2); Carbon Dioxide 27 mmol/L (22.0-30.0); Chloride 103 mmol/L (98-107); Creatinine Clearance Estimated 105 mL/min (50-200); Estimated Glomerular Filt Rate 98 ml/min (>60); GFR (African American) 118 ML/MIN (>60); Glucose 105 mg/dl (74-100); Potassium 3.7 mmoL/L (3.5-5.1); Sodium 135 mmol/L (136-145)
--- NOTE | 2019-12-04 05:52 | PC.NURSE ---
Pt has rested well this shift. Has ambulated x2 in hallway and walked further both times.Has had a bath this shift with assistance. Pt has c/o some discomfort to back and (R) foot. He states he has gout and has not had his medication for a few days. Pt has not c/o any abdominal discomfort. Uses pillow for splint when ambulating. Midline abdominal incision is C/D/I. NG tube to (L) nare to continuous low wall suction. 600 ml, light brown to light green drainage. METAL MOLDER morphine pump in use. Pt has had 4 mg this shift. BS hypoactive. Lungs are clear. Cough has decreased. Pt has been educated on using incentive spirometer. Medications administered per may. No other concerns at this time. Will continue to monitor.
--- NOTE | 2019-12-04 08:00 | FL_ITS ---
PROCEDURE: FL UPPER GI W GASTROGRAFIN CLINICAL INDICATION: Spontaneous idiopathic pneumoperitoneum -negative laparotomy COMPARISON: CT CT ABDOMEN PELVIS W CON from 12/01/2019 FINDINGS: Fluoro time: 1 minutes and 40 seconds Study is performed with Gastrografin. Patient swallowed a small amount contrast in in the remaining contrast injected through the NG tube. There was a small hiatal hernia. There is no evidence of contrast extravasation from the esophagus, stomach, or proximal small bowel. No obvious ulcer or mass evident. Multiple clips are present along the anterior abdominal wall. There has been a prior cholecystectomy. Staple Shear Operator exam shows scoliosis convex right with mild amount of retained colonic feces. IMPRESSION: Small hiatal hernia otherwise negative unremarkable Gastrografin upper GI. Dictated by: Kristopher Sarkar MD 12/04/2019 12:56 Kristopher Sarkar MD in [place] 12/04/2019 12:56
--- NOTE | 2019-12-04 09:22 | P.PN_ITS ---
Subjective Narrative: Overall, he states that he is doing okay . He does have increased gout pain and states that he also has some back pain from lying in the bed . No significant nausea. Progress Note: A&P (1) Pneumoperitoneum Status: Acute Assessment and plan: No obvious extravasation noted on Gastrografin UGI Current Visit: Yes (2) Postoperative ileus Status: Acute Assessment and plan: Await return of bowel function Current Visit: Yes (3) Appendix disease Status: Acute Current Visit: Yes (4) Gout Status: Acute Assessment and plan: Indomethacin suppositories ordered Current Visit: Yes Exam Vital signs and Labs for Last 24 Hours: Temp Pulse Resp BP Pulse Ox 99.0 F 81 19 150/84 H 94 L 12/04/19 04:00 12/04/19 08:00 12/04/19 08:00 12/04/19 08:00 12/04/19 08:00 Laboratory Results - last 24 hr 12/04/19 04:50: WBC 11.1 H, RBC 4.69, Hgb 14.5, Hct 41.2 L, MCV 87.7, MCH 30.9, MCHC 35.2, RDW 14.0, Plt Count 295, MPV 7.1 L, Neut % (Auto) 80.1 H, Lymph % (Auto) 8.4 L, [place] % (Auto) 8.0, Eos % (Auto) 3.1, Baso % (Auto) 0.3, Neut # (Auto) 8.9 H, Lymph # (Auto) 0.9, [place] # (Auto) 0.9, Eos # (Auto) 0.4, Baso # (Auto) 0.0 12/04/19 04:50: Sodium 135 L, Potassium 3.7, Chloride 103, Carbon Dioxide 27, Anion Gap 8.7, BUN 11, Creatinine 0.80, Estimated Creat Clear 105, Estimated GFR 98, Est GFR ( Amer) 118, Glucose 105 H, Calcium 9.3 I & O for Last 24 hours: Intake & Output 12/01/19 12/02/19 12/03/19 12/04/19 11:59 11:59 11:59 11:59 Intake Total 1500 / 1500 4884 / 4884 2994 / 2994 Output Total 1700 / 1700 3645 / 3645 1250 / 1250 Balance -200 / -200 1239 / 1239 1744 / 1744 Weight 232 lb 225 lb 9 oz 217 lb 5 oz - Constitutional no acute distress - *Routine Respiratory Exam Absent: respiratory distress - *Routine Abdominal Exam Present: soft
--- NOTE | 2019-12-04 09:27 | PC.NURSE ---
PER PT DOES NOT NEED TO BE CONNECTED TO HEART MONITOR OR CONT. PULSE OX.
--- NOTE | 2019-12-04 10:58 | PC.NURSE ---
pt has done well thus far. this morning he stated his pain, when he has it, is in his back from laying in the same position for periods of time. md is aware and made changes, he put orders in. orders carried out. pt ambulated in [place] this morning and met [facility] staff. no complaints voiced thus far. pt disconnected from apprentice cook pump, he had not used any on this shift when dc'd. abd incision is sylvia with 22 marilee present. will cont. to monitor.
--- NOTE | 2019-12-04 17:50 | PC.NURSE ---
pt has done well today. has ambulated to bathroom with one assist multiple times. reports a medium soft stool, and a small loose stool that was dark in color. pt reminded to let staff see bm before flushing toilet. no pain voiced, states the pain in his foot and back are better. NG is connected to LWS. will record total output towards end of shift. vss. will cont. to monitor.
--- NOTE | 2019-12-04 18:40 | PC.NURSE ---
Addendum entered by Nahomy Suazo RN 12/04/19 18:54: pt has requested for his iv's to not be changed. education given to pt about why we change them and he would like to leave them in for now. (R) FA and (L) AC are both patent. Original Note: pt has had a total of 450ml of green/brown drainage per ng tube.
--- NOTE | 2019-12-04 19:11 | PC.NURSE ---
report given to reyes
[2019-12-05] VITALS (7 sets, daily range): BP systolic 144–167; BP diastolic 71–85; PULSE 78–81; RESP 17–20; TEMP 36.4–37.3; O2SAT 92–99; BMI 29.4
--- NOTE | 2019-12-05 02:50 | PC.NURSE ---
A&OX3. SUPERVISOR CORDUROY CUTTING EQUAL BILAT. LUNGS NOTED WITH SCATTERED WHEEZING PER AUSCULTATION. TOLERATED RA WELL. INCENTIVE SPIROMETER USED Q1HWA. ABDOMEN NOTED NONDISTENDED, HYPOACTIVE BOWEL SOUNDS, SOFT AND NONTENDER PER PALPATION. MIDLINE ABDOMINAL INCISION WITH SHERLEY NOTED CDI, NO S/S OF INFECTION. ENCOURAGED PT TO SPLINT ABDOMEN WITH PILLOW AT TIMES OF MOVEMENT, COUGHING. NG NOTED TO LEFT NARE AT 60 CM, PLACEMENT VERIFIED PER AUSCULTATION AND GASTRIC CONTENTS NOTED IN SUCTION CANISTER. NG HOOKED TO CLWS T/O SHIFT. PT DENIES FLATUS BUT REPORTS BELCHING, AND WAS TOLD IN REPORT PER DAY SHIFT RN THAT PT HAD 2 BM'S ON DAY SHIFT. PT AMBULATED TO END OF HALLWAY AND BACK TO ROOM WITH ASSIST X1 AT BEGINNING OF SHIFT AND TOLERATED WELL. VSS. WILL CONTINUE TO MONITOR.
--- NOTE | 2019-12-05 08:41 | HMH.GSPN ---
Subjective Patient reports: no new complaints, bowel movement Progress Note: A&P (1) Pneumoperitoneum Status: Acute Assessment and plan: no obvious ulcer or extravasation noted on Gastrografin UGI Current Visit: Yes (2) Postoperative ileus Status: Acute Assessment and plan: slowly resolving NG to drain Current Visit: Yes (3) Appendix disease Status: Acute Current Visit: Yes (4) Gout Status: Acute Current Visit: Yes Exam Vital signs and Labs for Last 24 Hours: Temp Pulse Resp BP Pulse Ox 99.0 F 81 17 167/85 H 99 12/05/19 07:55 12/05/19 07:55 12/05/19 07:55 12/05/19 07:55 12/05/19 07:55 I & O for Last 24 hours: Intake & Output 12/02/19 12/03/19 12/04/19 12/05/19 11:59 11:59 11:59 11:59 Intake Total 1500 / 1500 4884 / 4884 2994 / 2994 2625 / 2625 Output Total 1700 / 1700 3645 / 3645 1250 / 1250 675 / 675 Balance -200 / -200 1239 / 1239 1744 / 1744 1950 / 1950 Weight 232 lb 225 lb 9 oz 217 lb 5 oz 217 lb 4.8 oz - Constitutional no acute distress - *Routine Respiratory Exam Absent: respiratory distress - *Routine Cardiovascular Exam Present: RRR - *Routine Abdominal Exam Present: soft Comments: Incision clean, dry, and intact. No erythema.
--- NOTE | 2019-12-05 12:23 | PC.NURSE ---
1200: residual check 20ml.
--- NOTE | 2019-12-05 16:08 | PC.NURSE ---
1600: NG tube residual 70ml.
--- NOTE | 2019-12-05 17:44 | PC.NURSE ---
0800: 150ml NG output suction canister. 1200: 20ml NG residual 1600: 70ml NG residual.
[2019-12-06 03:32] VITALS: BP 150/75; PULSE 55; RESP 16; TEMP 36.8; O2SAT 94
--- NOTE | 2019-12-06 04:33 | PC.NURSE ---
He is A&Ox4. NG is in left nare to gravity. Residual as follows: 2000- 10mL, 2400- 0mL, 0400-30mL. Drainage is green in color. He denies nausea. States he had a BM a little bit of one on 12/03. He reports that he is belching. He has a midline abdominal incision with 22 marilee SET UP OPERATOR. No drainage at site but yellowish bruise around site.
[2019-12-06 05:28] VITALS: BMI 29.9
--- NOTE | 2019-12-06 07:23 | PC.NURSE ---
Has ambulated twice this shift.
[2019-12-06 08:00] VITALS: BP 153/70; PULSE 66; RESP 20; TEMP 36.7; O2SAT 93
--- NOTE | 2019-12-06 08:46 | HMH.GSPN ---
Subjective Patient reports: no new complaints, pain is less (NG to drain bag. No nausea.) Progress Note: A&P (1) Pneumoperitoneum Status: Acute Current Visit: Yes (2) Postoperative ileus Status: Acute Assessment and plan: Slowly resolving Remove nasogastric tube Trial of clear liquids Current Visit: Yes (3) Appendix disease Status: Acute Assessment and plan: Follow-up pending pathology Current Visit: Yes (4) Gout Status: Acute Current Visit: Yes Exam Vital signs and Labs for Last 24 Hours: Temp Pulse Resp BP Pulse Ox 98.3 F 55 L 16 150/75 H 94 L 12/06/19 03:32 12/06/19 03:32 12/06/19 03:32 12/06/19 03:32 12/06/19 03:32 I & O for Last 24 hours: Intake & Output 12/03/19 12/04/19 12/05/19 12/06/19 11:59 11:59 11:59 11:59 Intake Total 4884 / 4884 2994 / 2994 2625 / 2625 3327 / 3327 Output Total 3645 / 3645 1250 / 1250 675 / 675 280 / 280 Balance 1239 / 1239 1744 / 1744 1950 / 1950 3047 / 3047 Weight 225 lb 9 oz 217 lb 5 oz 217 lb 4.8 oz 221 lb - Constitutional no acute distress - *Routine Respiratory Exam Absent: respiratory distress - *Routine Cardiovascular Exam Present: RRR - *Routine Abdominal Exam Present: soft Comments: Incision clean, dry, and intact. No erythema.
[2019-12-06 16:00] VITALS: BP 155/74; PULSE 68; RESP 18; TEMP 36.8; O2SAT 96
--- NOTE | 2019-12-06 18:22 | PC.NURSE ---
Pt is alert and oriented x4. Wheezes noted to lungs. Bowel sounds hypoactive all quads. He has had 2 small bm's this shift. He has ambulated with standby assist and walker x3 today in the hallway. He tolerates well. He has been up to the chair and using incentive spirometer. Midline incision is open to air. No drainage or erythema noted. Every other staple removed and steri-strips placed. NG removed this am. Pt tolerating liquid diet. No complaints verbalized. Will continue to monitor.
--- NOTE | 2019-12-06 19:28 | PC.NURSE ---
report given to ugo
[2019-12-06 19:48] VITALS: BP 157/78; PULSE 71; RESP 16; TEMP 36.4; O2SAT 96
[2019-12-07] VITALS: BP 164/79; PULSE 67; RESP 20; TEMP 36.7; O2SAT 97
[2019-12-07 04:00] VITALS: BP 147/86; PULSE 63; RESP 18; TEMP 36.7; O2SAT 97
--- NOTE | 2019-12-07 04:09 | PC.NURSE ---
Pt's room air sat at rest = 99%
--- NOTE | 2019-12-07 04:14 | PC.NURSE ---
PT. AMBULATED HALLWAY WITH STANDBY ASSIST THIS SHIFT. MIDLINE INCISION C/D/I. PT. C/O INTERMITTENT NONPRODUCTIVE COUGH; NOTIFIED MD (SEE PROVIDER NOTIFICATION), ROBITUSSIN ORDERED; EFFECTIVENESS NOTED. PT. HAS REPORTED BELCHING AND FLATUS THIS SHIFT.
[2019-12-07 05:00] VITALS: BMI 29.6
--- NOTE | 2019-12-07 06:43 | HMH.GSPN ---
Subjective Patient reports: no new complaints, feels better, tolerating liquids well, flatus Progress Note: A&P (1) Pneumoperitoneum Status: Acute Assessment and plan: Overall, doing well status post exploratory laparotomy Current Visit: Yes (2) Postoperative ileus Status: Acute Assessment and plan: Resolving Advance to full liquids Current Visit: Yes (3) Appendix disease Status: Acute Assessment and plan: Pathology revealed chronic appendicitis Current Visit: Yes (4) Gout Status: Acute Current Visit: Yes Exam Vital signs and Labs for Last 24 Hours: Temp Pulse Resp BP Pulse Ox 98.0 F 63 18 147/86 H 97 12/07/19 04:00 12/07/19 04:00 12/07/19 04:00 12/07/19 04:00 12/07/19 04:00 I & O for Last 24 hours: Intake & Output 12/04/19 12/05/19 12/06/19 12/07/19 11:59 11:59 11:59 11:59 Intake Total 2994 / 2994 2625 / 2625 3327 / 3327 2195 / 2195 Output Total 1250 / 1250 675 / 675 280 / 280 Balance 1744 / 1744 1950 / 1950 3047 / 3047 2195 / 2195 Weight 217 lb 5 oz 217 lb 4.8 oz 221 lb 219 lb 1 oz - Constitutional no acute distress - *Routine Respiratory Exam Absent: respiratory distress - *Routine Cardiovascular Exam Present: RRR - *Routine Abdominal Exam Present: soft Comments: Incision clean, dry, and intact. No erythema.
[2019-12-07 07:59] VITALS: BP 151/80; PULSE 71; RESP 18; TEMP 36.8; O2SAT 94
--- NOTE | 2019-12-07 12:20 | HMH.DCSUM ---
General - General Admission date:: 12/01/19 Discharge date: 12/07/19 HPI HPI: HPI: This is a 64-year-old gentleman who presents emergency department with increasing abdominal pain. CT scan was completed that revealed pneumoperitoneum. The surgical service was consulted for further evaluation and management. Please see HPI from his emergency department evaluation forwarded below. From emergency department evaluation: HPI narrative: 64-year-old male presented to the emergency department with a variety of symptoms. He states that approximately 2 hours ago he had the urge to go have a bowel movement. He states that during this episode, he started having some discomfort in the middle of his abdomen. He states that it radiated all the way up into his chest. He states that the pain is persisted and moved into his neck, back left shoulder and arm. States that it is a dull nagging pain. He is not having any associated vomiting, diarrhea or blood in stool. Patient states that the pain continues to persist at this time. He is not having any shortness of breath or cough or hemoptysis. Denies any headache or change in vision. No focal weakness. Denies any fevers or chills. Hospital Course Hospital Course: The patient underwent exploratory laparotomy and incidental appendectomy. Please see operative report for detail. No obvious perforation noted intraoperatively. Postoperative UGI series revealed no obvious abnormality. Postoperatively, the patient progressed well. He remained afebrile with stable and normal vital signs. He did have a somewhat prolonged postoperative ileus. Bowel function began to show signs of return around postoperative day 5 and he was deemed appropriate for discharge the following afternoon. Condition at discharge: The time of discharge patient was afebrile with stable and normal vital signs. He was ambulating without difficulty and tolerating full liquids. Objective Vital signs: Temp Pulse Resp BP Pulse Ox 98.2 F 71 18 151/80 H 94 L 12/07/19 07:59 12/07/19 07:59 12/07/19 07:59 12/07/19 07:59 12/07/19 07:59 no acute distress - *Routine HEENT Exam Head: Present: normocephalic Eye: Present: EOMI ENT: Present: mucous membranes moist - *Routine Neck Exam Present: full ROM - Routine Chest/Breast/Axilla Exam Chest wall: Absent: tenderness - *Routine Respiratory Exam Absent: respiratory distress - *Routine Cardiovascular Exam Present: RRR - *Routine Abdominal Exam Present: soft - *Routine Rectal Exam Visual: Absent: paul blood - *Routine Exam Penile: Absent: erythema - *Routine Extremities Exam Present: full ROM. Absent: cyanosis, clubbing, edema - Routine Back/Spine/Pelvis Exam Back/Spine: Present: full ROM - *Routine Skin Exam Absent: erythema - *Routine Neurological Exam Present: alert - Routine Psychiatric Exam Present: normal affect DS: Diagnosis - Discharge Diagnosis (1) Pneumoperitoneum Status: Acute (2) Postoperative ileus Status: Acute (3) Appendix disease Status: Acute (4) Gout Status: Acute Discharge Plan - Patient Discharge Instructions ACTIVITY: No heavy lifting DIET: advance to your usual diet Patient Instructions: How to Care for a Surgical Wound, Exploratory Laparotomy, Gout, DI for an Appendectomy, DI for Surgical Site Infection - Follow up Plan Follow up with: Provider,MD Michael [Referring] - Ruddy Cota MD [Staff Physician] - (need appt. for next week for suture removal (Cipriano not in office) need appt. for 2 weeks for follow-up) Disposition: Home, Self-Halfway Medications: Home Medications Medication Instructions Recorded Confirmed Type indomethacin 50 mg capsule 50 mg PO BID 11/09/19 12/02/19 History levothyroxine 137 mcg tablet 137 mcg PO DAILY tab 11/09/19 12/01/19 History lisinopril 10 1 tab PO DAILY tab 11/09/19 12/01/19 History mg-hydrochlorothiazide
== END 2019-12-07 13:00 | disposition home or self-care (01) | DRG 342 ==
LOC: ER 17:06 → SDC 17:43 → 2ND 17:53
PROVIDERS: Admitting Provider Surgery; Emergency Provider Emergency Medicine; PCP Family Medicine; Visit Provider Surgery
PROC: 0DTJ0ZZ Resection of Appendix, Open Approach (ICD-10-PCS; CPT 49000; principal; 2019-12-01 18:30)
DX: K36 Other appendicitis (principal); K56.7 Ileus, unspecified; I10 Essential (primary) hypertension; E03.9 Hypothyroidism, unspecified
CPT/HCPCS: 44950; 36415; 71046; 74177; 74240; 80048; 80076; 82150; 83605; 83690; 84484; 85007; 85025; 86328; 93005; 94640; 96374; 96375; 99284; J0330; J0670; J1335; J2405; J2543; Q9967

== ENCOUNTER 2019-12-09 02:53 | Emergency (ER) | payer BC, SELFPAY ==
--- NOTE | 2019-12-09 02:50 | ECG_ITS ---
APPROVED REPORT Exam: Resting ECG HR:91 bpm ECG Measurements Heart Rate 91 AXES FL 178 P 17 QRSd 112 QRS 98 QT 360 T 12 QTc 442 <Conclusion> Sinus rhythm with occasional premature ventricular complexes Rightward axis Borderline ECG Electronically signed by : Sammy Hughes, 12/12/2019 20:23:20
[2019-12-09 02:54] VITALS: BP 127/80; PULSE 94; RESP 28; TEMP 37.1; O2SAT 78; BMI 28.2
[2019-12-09 03:00] VITALS: BP 119/76; PULSE 88; RESP 24; O2SAT 90
[2019-12-09 03:03] VITALS: BMI 29.8
--- NOTE | 2019-12-09 03:04 | PC.NURSE ---
speaking with Dr. Lopez
--- NOTE | 2019-12-09 03:05 | PC.NURSE ---
Calling [facility]
--- NOTE | 2019-12-09 03:07 | CT_ITS ---
PROCEDURE: CT ABDOMEN PELVIS W CON CLINICAL INDICATION: abd pain, free air Pneumoperitoneum, abdominal pain, recent appendectomy COMPARISON: CT CT ABDOMEN PELVIS W CON from 12/01/2019 TECHNIQUE: IV Contrast: 75ML OPTIRAY 350 Oral Contrast None Axial images obtained with sagittal and coronal reformats. All CT scans at the facility use one or more dose reduction, viz: automated exposure control, ma/kV adjustment per patient size (including targeted exams where dose is matched to indication, i.e. head), or iterative reconstruction technique. FINDINGS: LOWER THORAX: There is a nasogastric tube present. The tip of the tube is at the cardia of the stomach. There is a small hiatal hernia. Fluid is present in the esophagus. Atelectatic changes are present in the right lower lobe. ABDOMEN & PELVIS: Free air once again noted. There is some fluid also present within the peritoneum with scattered air-fluid levels. Additional small gas locules are present throughout the abdomen. Fluid is present within the pelvis with some gas locules. There is a small hypodensity in the anterior segment of the right hepatic lobe. Appears somewhat less prominent compared to the previous study with some peripheral enhancement which may be due to small hemangioma. This measures approximately 7 mm. There has been a prior cholecystectomy. The spleen, adrenal glands, pancreas, and kidneys have an unremarkable appearance. There is diffuse small bowel dilatation. Small bowel loops measure up 2 4.9 cm. There is also fluid-filled mildly dilated large bowel within the cecum and transverse colon with nondistended descending colon and sigmoid colon. There is smooth segment narrowing of the distal ileum. There has been an appendectomy. No acute bony findings. Degenerative changes are present in the thoracic and lumbar spine. A well-circumscribed lucency with sclerotic margins is present in the left ilium at 11 mm. Postsurgical changes are present involving the anterior abdominal wall with clips present IMPRESSION: 1. Pneumoperitoneum. 2. Diffuse small bowel dilatation with narrowing of the distal ileum. There is also dilatation of portions of the large bowel. These findings may be due to postoperative ileus. Cannot exclude the possibility of distal small bowel obstruction with narrowing of the terminal ileum. Please correlate with recent surgical findings along with current clinical findings and possible follow-up with both IV and oral contrast. 3. Hiatal hernia. NG tube tip in the cardia of the stomach. 4. Right basilar atelectasis Dictated by: Kristopher Sarkar MD 12/09/2019 06:34 Kristopher Sarkar MD in [place] 12/09/2019 06:34
--- NOTE | 2019-12-09 03:07 | PC.NURSE ---
Placed 16 NG tube @ 48
--- NOTE | 2019-12-09 03:11 | PC.NURSE ---
Addendum entered by Shira Santana RN 12/09/19 04:34: did not want to wait on lab results for CT Original Note: Pt going to CT. Mila, mid level project manager going with pt
--- NOTE | 2019-12-09 03:12 | PC.NURSE ---
speaking with Dr. Bello @ [facility]
--- NOTE | 2019-12-09 03:16 | PC.NURSE ---
paging pharmacy for vanc dosing
[2019-12-09 03:17] LABS: Basophils # 0.1 K/mm3 (0-0.2); Basophils % 0.6 % (0.1-2.0); Eosinophils # 0.2 K/mm3 (0.0-0.4); Eosinophils % 1.1 % (0.1-12.0); Lymphocytes # 0.8 K/mm3 (0.7-4.5); Lymphocytes % 3.5 % (10-50); Mean Corpuscular HGB Conc 34.7 g/dL (31.8-35.4); Mean Corpuscular Hemoglobin 30.3 pg (27.0-31.2); Mean Corpuscular Volume 87.3 fl (80-94); Mean Platelet Volume 7.7 fl (7.4-10.4); Monocytes # 0.9 K/mm3 (0.1-1.0); Monocytes % 4.2 % (1.7-9.3); Neutrophils # 20.3 K/mm3 (1.8-7.8); Neutrophils % 90.7 % (37.0-80.0); Platelet Count 595 K/mm3 (142-424); Red Blood Count 5.61 M/mm3 (4.60-6.20); Red Cell Distribution Width 13.8 % (11.5-17.5)
--- NOTE | 2019-12-09 03:17 | HMH.EDGENADL ---
ED Disposition Clinical Impression: Pneumoperitoneum Disposition: Xfer Other Condition on Discharge: Serious Referrals: Provider,Referral, [Primary Care Provider] - - Critical Care Critical Care Time: No Attestation: On 12/09/19, the high probability of a clinically significant, sudden or life threatening deterioration of the following system(s) required my full and direct attention, intervention and personal management. The time I documented below is in addition to time spent performing reported procedures but includes the following listed in this critical care notation. Medical Decision Making - Medical Records Medical records reviewed: Yes: I reviewed the patient's medical records. - Jovon Inquiry Pt receiving controlled substance: No - Lab Data Lab Results 12/09/19 03:00: WBC 22.4 H*, RBC 5.61, Hgb 17.0, Hct 49.0, MCV 87.3, MCH 30.3, MCHC 34.7, RDW 13.8, Plt Count 595 H, MPV 7.7, Neut % (Auto) 90.7 H, Lymph % (Auto) 3.5 L, Ritchie % (Auto) 4.2, Eos % (Auto) 1.1, Baso % (Auto) 0.6, Neut # (Auto) 20.3 H, Lymph # (Auto) 0.8, Ritchie # (Auto) 0.9, Eos # (Auto) 0.2, Baso # (Auto) 0.1, Total Counted 100, Neutrophils % (Manual) 69, Band Neutrophils % 18.0 H, Lymphocytes % (Manual) 11, Monocytes % (Manual) 2, Toxic Granulation 3+, Platelet Estimate Moderate increase, RBC Morphology Normal 12/09/19 03:00: PT 15.3 H, INR 1.42 H, APTT 27.1 12/09/19 03:00: Sodium 136, Potassium 4.6, Chloride 95 L, Carbon Dioxide 25, Anion Gap 20.6 H, BUN 33 H, Creatinine 2.60 H, Estimated Creat Clear 41, Estimated GFR 25 L, Est GFR ( Amer) 30 L, Glucose 224 H, Calcium 10.3 H, Total Bilirubin 1.3, AST 62 H, ALT 80 H, Alkaline Phosphatase 101, Total Protein 8.0, Albumin 4.3, Globulin 3.7 H, Albumin/Globulin Ratio 1.2 12/09/19 03:00: Lactate 3.3 H 12/09/19 03:06: VBG pH 7.23 L, VBG pCO2 52.6 H, VBG pO2 30.3, VBG HCO3 21.4 L, VBG Total CO2 23.0, VBG O2 Saturation 49.1 L, VBG Base Excess -6.2 L Result diagrams: 12/09/19 03:00 12/09/19 03:00 Orders (Tests/Meds): ED MEDICATIONS Generic Name Dose Route Start Last Admin Trade Name Rene PRN Reason Stop Dose Admin Piperacillin Sod/Tazobactam 50 mls @ 100 mls/hr 12/09/19 03:15 12/09/19 03:24 Sod 3.375 gm/ Sodium Chloride IV 12/23/19 03:14 100 mls/hr Q6H MAGED Administration Protocol Vancomycin HCl 2,000 mg/ 250 mls @ 125 mls/hr 12/09/19 03:20 12/09/19 03:24 Sodium Chloride IV 12/09/19 05:19 125 mls/hr ONCE ONE Administration Protocol Miscellaneous 1 each 12/09/19 03:15 12/09/19 03:24 Vancomycin Consult Request * 01/08/20 03:14 1 each CONSULT PHARMACY MAGED Administration Discontinued Medications Generic Name Dose Route Start Last Admin Trade Name Rene PRN Reason Stop Dose Admin Ioversol 75 ml 12/09/19 03:32 12/09/19 03:33 Rad-Optiray 350 100ml Vial IV 12/09/19 03:33 75 ml ONCE ONE Administration Protocol Morphine Sulfate 4 mg 12/09/19 03:11 12/09/19 03:24 Morphine 4mg/Ml Syringe IV 12/09/19 03:12 4 mg ONCE ONE Administration Ondansetron HCl 4 mg 12/09/19 03:11 12/09/19 03:24 Zofran 4mg/2ml Vial IV 12/09/19 03:12 4 mg ONCE ONE Administration Sodium Chloride 10 ml 12/09/19 03:32 12/09/19 03:33 Rad-Saline Flush 10ml Syringe IV 12/09/19 03:33 10 ml ONCE ONE Administration ORDERS Category Date Time Status Type and Screen Stat BBK 12/09/19 03:[address] abdomen pelvis w con Stat Cat Scan 12/09/19 03:07 Taken CXR --portable [XR chest portable] Stat Exams 12/09/19 03:31 Taken CXR --portable [XR chest portable] Stat Exams 12/09/19 03:32 Taken Blood Culture Stat Micro 12/09/19 03:00 Received Medical Decision Narrative: In summary 64-year-old male presenting for abdominal pain and distention. Patient is postop after a complicated surgery, patient has a large midline incision with no obvious signs of surgical site infection at this time. Patient abdominal exam is concerning for pneu
--- NOTE | 2019-12-09 03:18 | PC.NURSE ---
Spoke with Gustabo he advised to give pt 2gram of vanc
[2019-12-09 03:20] LABS: White Blood Count 22.4 K/mm3 (4.8-10.8)
[2019-12-09 03:22] LABS: MANUAL DIFFERENTIAL MANUAL DIFFERENTIAL (MANUAL DIFF)
--- NOTE | 2019-12-09 03:25 | PC.NURSE ---
confirmed placement of NG via xray
[2019-12-09 03:29] LABS: Alanine Aminotransferase 80 U/L (12-78); Albumin Level 4.3 g/dl (3.5-5.0); Albumin/Globulin Ratio 1.2 (1.1-1.8); Alkaline Phosphatase 101 U/L (38-126); Anion Gap 20.6 mEq/L (5-15); Aspartate Amino Transferase 62 U/L (17-59); Bilirubin,Total 1.3 mg/dl (0.2-1.3); Blood Urea Nitrogen 33 mg/dl (9-20); Calcium 10.3 mg/dl (8.4-10.2); Carbon Dioxide 25 mmol/L (22.0-30.0); Chloride 95 mmol/L (98-107); Creatinine Clearance Estimated 41 mL/min (50-200); Estimated Glomerular Filt Rate 25 ml/min (>60); GFR (African American) 30 ML/MIN (>60); Globulin 3.7 g/dL (1.3-3.2); Glucose 224 mg/dl (74-100); Potassium 4.6 mmoL/L (3.5-5.1); Sodium 136 mmol/L (136-145)
[2019-12-09 03:30] LABS: Lactic Acid 3.3 mmol/L (0.7-2.1)
--- NOTE | 2019-12-09 03:31 | XR_ITS ---
PROCEDURE: XR CHEST PORTABLE CLINICAL HISTORY: abd pain COMPARISON: CR CXR CHEST(2 VIEWS-NOT PORTABLE) from 08/20/2015 CR XR CHEST 2V from 12/01/2019 FINDINGS: No peritoneum once again noted. The amount of free air appears greater than when compared to 12/01/2019. There are low lung volumes with atelectatic changes and mild prominence of the cardiac silhouette. IMPRESSION: Pneumoperitoneum Dictated by: Kristopher Sarkar MD 12/09/2019 05:59 Kristopher Sarkar MD in [place] 12/09/2019 05:59
[2019-12-09 03:32] LABS: Lymphocytes % 11 % (10-50); Monocytes % 2 % (2-9); Neutrophils % 69 % (42-76); RBC Morphology Normal; Total Cells Counted 100
--- NOTE | 2019-12-09 03:32 | XR_ITS ---
PROCEDURE: XR CHEST PORTABLE CLINICAL HISTORY: ng tube NG tube placement COMPARISON: CR CXR CHEST(2 VIEWS-NOT PORTABLE) from 08/20/2015 CR XR CHEST 2V from 12/01/[address] ABDOMEN PELVIS W CON from 12/09/2019 CR XR CHEST PORTABLE from 12/09/2019 FINDINGS: 3:14 a.m. Nasogastric tube tip is in the region the distal esophagus at the GE junction. There is diffuse pneumoperitoneum once again noted. There are low lung volumes with mild cardiomegaly. IMPRESSION: Nasogastric tube tip in the distal esophagus with pneumoperitoneum Dictated by: Kristopher Sarkar MD 12/09/2019 05:57 Kristopher Sarkar MD in [facility] 12/09/2019 05:57
[2019-12-09 03:33] LABS: VBG Base Excess -6.2 mmol/L (-2.4-2.3); VBG HCO3 21.4 mmol/L (23-30); VBG Oxygen Saturation 49.1 % (50-70); VBG PCO2 52.6 mmol/L (35-51); VBG PH 7.23 mmol/L (7.31-7.41); VBG PO2 30.3 mmol/L (28-40)
[2019-12-09 03:33] LABS: Platelet Estimate Moderate Increase; Toxic Granulation 3+
[2019-12-09 03:35] LABS: Activated Partial Thrombo Time 27.1 seconds (23.6-34.0); INR 1.42 (0.9-1.1); Prothrombin Time 15.3 seconds (9.4-11.8)
[2019-12-09 03:40] VITALS: BP 113/59; PULSE 80; RESP 25; O2SAT 92
--- NOTE | 2019-12-09 03:47 | PC.NURSE ---
Calling [facility] to give report
--- NOTE | 2019-12-09 03:56 | PC.NURSE ---
Called report to Rikki @ [facility]
--- NOTE | 2019-12-09 03:57 | PC.NURSE ---
Pt resting in the bed only c/o mild discomfort at this time. NG tube hooked to intermittent low wall suction, draining green.
[2019-12-09 04:00] VITALS: BP 102/55; PULSE 78; RESP 23; O2SAT 93
[2019-12-09 04:15] VITALS: BP 105/55; PULSE 78; RESP 16; TEMP 36.9; O2SAT 96
--- NOTE | 2019-12-09 04:15 | PC.NURSE ---
Jamie leaving with pt at this time
--- NOTE | 2019-12-09 04:34 | PC.NURSE ---
pt left with [facility] at 0415 via [facility] transport to [facility]
[2019-12-09 07:15] LABS: Reflex Lactic Add Lactic Reflex
== END 2019-12-09 04:15 | disposition short-term general hospital (02) ==
PROVIDERS: Emergency Provider Emergency Medicine
DX: K31.0 Acute dilatation of stomach (principal); K66.8 Other specified disorders of peritoneum; K21.9 Gastro-esophageal reflux disease without esophagitis; I10 Essential (primary) hypertension; J45.909 Unspecified asthma, uncomplicated; Z88.2 Allergy status to sulfonamides
CPT/HCPCS: 71045; 74177; 80053; 82803; 83605; 85007; 85025; 85610; 85730; 87040; 93005; 96365; 96367; 96375; 99285; J2405; J2543; J3370; Q9967

== ENCOUNTER → 2020-12-12 12:40 | Outpatient (CLI) | payer BC, SELFPAY ==
--- NOTE | 2020-12-12 12:45 | XR_ITS ---
PROCEDURE: XR CHEST 2V CLINICAL HISTORY: COUGH COMPARISON: CR XR CHEST 2V from 12/01/2019 CR XR CHEST PORTABLE from 12/09/2019 CR XR CHEST PORTABLE from 12/09/2019 FINDINGS: The cardiomediastinal silhouette and pulmonary vascularity are within normal limits. The lungs are clear without infiltrates, suspicious nodules, or pleural effusions. Pneumoperitoneum is once again noted. Degenerative changes are present in the thoracic spine. IMPRESSION: 1. No acute cardiac or pulmonary findings. 2. Persistent pneumoperitoneum nasogastric tube has been removed. Dictated by: Kristopher Sarkar MD 12/12/2020 14:22 Kristopher Sarkar MD in [place] 12/12/2020 14:22
== END ==
PROVIDERS: PCP Family Medicine; Visit Provider Family Medicine
DX: R05 Cough (principal)
CPT/HCPCS: 71046

== ENCOUNTER → 2023-02-09 10:55 | Outpatient (CLI) | payer BC, SELFPAY ==
--- NOTE | 2023-02-09 11:02 | XR_ITS ---
FINAL REPORT CLINICAL HISTORY: Lt shoulder pain FINDINGS: 3 views of the left shoulder were obtained. There is no acute fracture or dislocation. The joint spaces are intact. There are no soft tissue abnormalities. IMPRESSION: No acute process. Reviewed, Interpreted and Dictated by Rosalie Saez MD Transcribed by Abram Almaguer Authenticated and [facility]
== END ==
PROVIDERS: PCP Family Medicine; Visit Provider Family Medicine
DX: M25.512 Pain in left shoulder (principal)
CPT/HCPCS: 73030

== ENCOUNTER 2023-05-20 09:04 | Outpatient (CLI) | payer BC, SELFPAY ==
--- NOTE | 2023-05-20 09:13 | CT_ITS ---
FINAL REPORT CLINICAL HISTORY: LT SHOULDER PAIN COMPARISON: None FINDINGS: CT LEFT SHOULDER: CT examination of the left shoulder reveals no evidence of fracture or dislocation. There is mild acromioclavicular degenerative change present. There is superior subluxation of the humeral head with marked narrowing of the subacromial space, which may be secondary to a rotator cuff tear. Mild supraspinatus muscular atrophy is noted. IMPRESSION: No acute bony abnormality of the left shoulder. Superior subluxation of the humeral head with subacromial space narrowing, possibly secondary to rotator cuff tear. There is also mild supraspinatus muscular atrophy. Would recommend MRI for further evaluation to rule out a rotator cuff tear. Reviewed, Interpreted and Dictated by Haider Sherman III, MD Transcribed by Evon Lozano Authenticated and [facility]
== END 2023-05-20 23:59 ==
LOC: RAD 09:05
PROVIDERS: PCP Family Medicine; Visit Provider Family Medicine
DX: M25.512 Pain in left shoulder (principal)
CPT/HCPCS: 73200

== ENCOUNTER 2023-06-02 12:02 | Outpatient (CLI) | payer BC, SELFPAY ==
[2023-06-02 12:06] LABS: Adenovirus F 40/41, stool Not Detected (NotDetected); Astrovirus Not Detected (NotDetected); Campylobacter Not Detected (NotDetected); Clostridium Difficile A/B, PCR Not Detected (NotDetected); Cryptosporidium Not Detected (NotDetected); Cyclospora Cayetanesis Not Detected (NotDetected); Entamoeba histolytica Not Detected (NotDetected); Enteroaggregative E coli Not Detected (NotDetected); Enteropathogenic E coli Not Detected (NotDetected); Enterotoxigenic E coli Not Detected (NotDetected); Giardia lamblia Not Detected (NotDetected); Plesimonas Shigalloides, PCR Not Detected (NotDetected); Rotavirus A Not Detected (NotDetected); Salmonella, PCR Not Detected (NotDetected); Sapovirus Not Detected (NotDetected); Shiga-like toxin E coli Not Detected (NotDetected); Shigella Enterovasive E coli Not Detected (NotDetected); Vibrio Cholerae Not Detected (NotDetected); Vibrio, PCR Not Detected (NotDetected); Yersinia Entercolitica, PCR Not Detected (NotDetected)
[2023-06-07 11:55] LABS: Norovirus Detected (NotDetected)
== END 2023-06-02 23:59 ==
LOC: LAB.DROPOF 12:03
PROVIDERS: PCP Family Medicine; Visit Provider Family Medicine
DX: A08.11 Acute gastroenteropathy due to Norwalk agent (principal); R19.7 Diarrhea, unspecified
CPT/HCPCS: 87507

== ENCOUNTER 2024-07-04 10:51 | Outpatient (CLI) | payer BC, SELFPAY ==
--- NOTE | 2024-07-04 10:56 | XR_ITS ---
FINAL REPORT CLINICAL HISTORY: LT FOOT PAIN COMPARISON: None FINDINGS: LEFT FOOT Three views demonstrate no acute fracture or dislocation. On the lateral view, there is an ossific density superior to the talus measuring 7 mm. A moderate plantar spur is noted. There is widening of the 3rd and 4th digits of unclear etiology. No acute soft tissue abnormality is seen. IMPRESSION: Chronic changes without acute bony abnormality. Reviewed, Interpreted and Dictated by Lokesh Smith MD Transcribed by Maricruz Jeter Authenticated and . [facility]
== END 2024-07-04 23:59 | disposition home or self-care (01) ==
LOC: RAD 10:53
PROVIDERS: PCP Family Medicine; Visit Provider Family Medicine
DX: M77.32 Calcaneal spur, left foot (principal); M79.672 Pain in left foot; M85.872 Other specified disorders of bone density and structure, left ankle and foot
CPT/HCPCS: 73630